=== PATIENT | female | born 1950 | race Caucasian/White ===

== ENCOUNTER 2017-05-14 02:12 | Inpatient (IN) | payer MEDICARE ==
[~2017-05-14] VITALS: Ht 167.6 cm; Wt 61.2 kg
[2017-05-14] MEDS ORDERED: SODIUM CHLORIDE 0.9% 1000ML 1,000 ML IV ONE ×3 (02:40→09:14)
[2017-05-14] MEDS ORDERED: ONDANSETRON HCL 4 MG/2 ML VIAL ONE (02:40)
[2017-05-14] MEDS ORDERED: KETOROLAC TROMETHAMINE 30MG/ML ONE (02:41)
[2017-05-14 03:08] LABS: BASOPHILS % (AUTO) 0.2 % (0.0-5.0); EOSINOPHILS % (AUTO) 0.2 % (0.0-8.0); LYMPHOCYTES % (AUTO) 7.9 % (21.0-51.0); MEAN CORPUSCULAR HEMOGLOBIN 29.8 pg (27.0-33.0); MEAN CORPUSCULAR HGB CONC 33.3 g/dL (32.0-36.0); MEAN CORPUSCULAR VOLUME 89.4 fL (79-99); MONOCYTES % (AUTO) 6.2 % (3.0-13.0); NEUTROPHILS % (AUTO) 85.5 % (40.0-77.0); PLATELET COUNT (AUTO) 274 K/uL (130-400); RED BLOOD CELL COUNT(AUTO) 4.81 MIL/uL (4.00-5.50); RED CELL DISTRIBUTION WIDTH 14.3 % (11.0-15.5); WHITE BLOOD COUNT (AUTO) 13.3 K/uL (4.8-10.8)
[2017-05-14 03:11] LABS: CREATININE 0.7 mg/dL (0.5-1.5); POTASSIUM 3.9 mmol/L (3.5-5.1)
[2017-05-14 03:15] LABS: ALBUMIN 3.5 g/dL (3.5-5.0); BILIRUBIN,DIRECT 0.1 mg/dL (0.0-0.3); BILIRUBIN,TOTAL 0.4 mg/dL (0.2-1.0); TOTAL PROTEIN, SERUM 6.8 g/dL (6.0-8.3)
[2017-05-14 03:20] LABS: INR 0.97 (0.85-1.15); PARTIAL THROMBOPLASTIN TIME 25.6 SEC (26.3-35.5); PROTHROMBIN TIME 10.2 SEC (9.6-11.6)
[2017-05-14 03:24] LABS: APPEARANCE,URINE Clear (CLEAR); BILIRUBIN,URINE Negative (NEGATIVE); COLOR,URINE Yellow (YELLOW); GLUCOSE, URINE (UA) Negative (NEGATIVE); KETONES,URINE 15 mg/dL (NEGATIVE); LEUKOCYTE ESTERASE ,URINE Negative (NEGATIVE); NITRATE,URINE Negative (NEGATIVE); OCCULT BLOOD,URINE Nonhemolyzed Trace (NEGATIVE); PROTEIN,URINE Negative (NEGATIVE)
[2017-05-14 03:31] LABS: BACTERIA,URINE None Seen /HPF (None Seen); RBC,URINE 0-1 /HPF (0-1); SQUAMOUS EPITHELIAL CELL,UR Moderate /LPF (0-2); WBC,URINE 0-1 /HPF (0-1)
[2017-05-14] MEDS ORDERED: MEROPENEM 1 GM VIAL ONE (04:07)
[2017-05-14] MEDS ORDERED: VANCOMYCIN 1GM+NS 250ML 250 ML IV ONE (04:08)
[2017-05-14] MEDS: SODIUM CHLORIDE 0.9% 1000ML 1,000 ML IV SCH ×4 (06:15→20:45)
[2017-05-14] MEDS: MEROPENEM 500 MG VIAL IVP SCH ×3 (07:00→21:57)
[2017-05-14] MEDS: METRONIDAZOLE 500MG/100ML BAG 100 ML IV SCH ×3 (07:00→22:01)
[2017-05-14] MEDS ORDERED: ONDANSETRON HCL 4 MG/2 ML VIAL IV PRN (07:00)
[2017-05-14] MEDS ORDERED: POTASSIUM CHLORIDE 20 MEQ ERTAB PO PRN (07:00)
[2017-05-14] MEDS ORDERED: MORPHINE SULFATE 2 MG/ML 1ML SYG IV PRN (07:00)
[2017-05-14] MEDS ORDERED: HYDRALAZINE HCL 20 MG/ML VIAL IV PRN (07:00)
[2017-05-14] MEDS ORDERED: POTASSIUM CHLORIDE 10% ELIXIR 20 MEQ/15 ML UDCUP PO PRN (07:00)
[2017-05-14] MEDS ORDERED: MEROPENEM 500MG+NS 50ML 50 ML IV SCH (07:00)
[2017-05-14] MEDS ORDERED: ACETAMINOPHEN 650 MG SUPPOSITORY RC ONE (07:31)
[2017-05-14] MEDS: PANTOPRAZOLE SODIUM 40 MG TABLET.DR PO SCH (09:00)
[2017-05-14] MEDS ORDERED: METRONIDAZOLE 500MG/100ML BAG 100 ML ONE (09:14)
[2017-05-14] MEDS ORDERED: MEROPENEM 500 MG VIAL ONE (13:03)
[2017-05-14 16:00] VITALS: BP 144/81
[2017-05-14] MEDS ORDERED: ERGO400C PO (17:48)
[2017-05-14] MEDS ORDERED: MVIT PO (17:48)
[2017-05-14] MEDS ORDERED: ASCO100T12 PO (17:48)
[2017-05-14 20:00] VITALS: BP 152/88
[2017-05-15] VITALS: BP 144/76
[2017-05-15] MEDS: SODIUM CHLORIDE 0.9% 1000ML 1,000 ML IV SCH ×4 (01:52→23:00)
[2017-05-15 04:00] VITALS: BP 143/77
[2017-05-15] MEDS: METRONIDAZOLE 500MG/100ML BAG 100 ML IV SCH ×3 (05:00→23:00)
[2017-05-15] MEDS: MEROPENEM 500 MG VIAL IVP SCH ×3 (05:00→22:59)
[2017-05-15 05:48] LABS: HEMATOCRIT 38.6 % (36-48); MEAN CORPUSCULAR HEMOGLOBIN 29.8 pg (27.0-33.0); MEAN CORPUSCULAR HGB CONC 33.4 g/dL (32.0-36.0); MEAN CORPUSCULAR VOLUME 89.4 fL (79-99); PLATELET COUNT (AUTO) 247 K/uL (130-400); RED BLOOD CELL COUNT(AUTO) 4.32 MIL/uL (4.00-5.50); RED CELL DISTRIBUTION WIDTH 14.4 % (11.0-15.5); WHITE BLOOD COUNT (AUTO) 13.1 K/uL (4.8-10.8)
[2017-05-15 05:54] LABS: CREATININE 0.6 mg/dL (0.5-1.5); POTASSIUM 3.3 mmol/L (3.5-5.1)
[2017-05-15] MEDS: LIDOCAINE HCL-MPF 1% 2ML VIAL IVP PRN (06:40)
[2017-05-15] MEDS: POTASSIUM CHLORIDE 20MEQ/100ML 100 ML IV PRN ×2 (06:40→14:12)
[2017-05-15] MEDS: PANTOPRAZOLE SODIUM 40 MG TABLET.DR PO SCH (07:51)
[2017-05-15 08:01] VITALS: BP 137/77
[2017-05-15] MEDS: FAMOTIDINE/PF 20 MG/2 ML VIAL IV SCH ×2 (10:52→20:39)
[2017-05-15 11:53] VITALS: BP 141/80
[2017-05-15] MEDS ORDERED: METRONIDAZOLE 500MG/100ML BAG 100 ML IVPB ONE (14:04)
[2017-05-15 16:33] VITALS: BP 149/74
[2017-05-15 20:00] VITALS: BP 156/78
[2017-05-16] VITALS (7 sets, daily range): BP systolic 136–148; BP diastolic 75–83
[2017-05-16 05:27] LABS: HEMATOCRIT 40.7 % (36-48); MEAN CORPUSCULAR HEMOGLOBIN 29.8 pg (27.0-33.0); MEAN CORPUSCULAR VOLUME 90.2 fL (79-99); PLATELET COUNT (AUTO) 273 K/uL (130-400); RED BLOOD CELL COUNT(AUTO) 4.52 MIL/uL (4.00-5.50); RED CELL DISTRIBUTION WIDTH 14.4 % (11.0-15.5); WHITE BLOOD COUNT (AUTO) 9.5 K/uL (4.8-10.8)
[2017-05-16 05:44] LABS: CREATININE 0.7 mg/dL (0.5-1.5); POTASSIUM 3.7 mmol/L (3.5-5.1)
[2017-05-16] MEDS: METRONIDAZOLE 500MG/100ML BAG 100 ML IV SCH ×3 (06:11→22:43)
[2017-05-16] MEDS: SODIUM CHLORIDE 0.9% 1000ML 1,000 ML IV SCH ×3 (06:11→19:30)
[2017-05-16] MEDS: MEROPENEM 500 MG VIAL IVP SCH ×3 (06:11→22:43)
[2017-05-16] MEDS: FAMOTIDINE/PF 20 MG/2 ML VIAL IV SCH ×2 (08:26→19:30)
[2017-05-16] MEDS ORDERED: ENOXAPARIN SODIUM 40 MG/0.4 ML SYRINGE SQ SCH (09:00)
[2017-05-16] MEDS ORDERED: WATER FOR INJECTION,STERILE 20 ML VIAL ONE (15:21)
[2017-05-16] MEDS ORDERED: DIATR MEGLU/DIATRIZOATE SODIUM 30 ML BOTTLE PO ONE (20:47)
[2017-05-17 05:10] VITALS: BP 133/81
[2017-05-17] MEDS: METRONIDAZOLE 500MG/100ML BAG 100 ML IV SCH ×3 (05:57→23:01)
[2017-05-17] MEDS: MEROPENEM 500 MG VIAL IVP SCH ×3 (05:57→23:01)
[2017-05-17 06:12] LABS: CREATININE 0.6 mg/dL (0.5-1.5); POTASSIUM 3.3 mmol/L (3.5-5.1)
[2017-05-17 08:25] VITALS: BP 158/72
[2017-05-17] MEDS: FAMOTIDINE/PF 20 MG/2 ML VIAL IV SCH ×2 (09:00→20:12)
[2017-05-17] MEDS ORDERED: DEXTROSE 5 %-0.45 % NACL 1,000 ML IV SCH (11:13)
[2017-05-17 11:40] VITALS: BP 162/78
[2017-05-17] MEDS: POTASSIUM CHLORIDE 20MEQ/100ML 100 ML IV PRN ×2 (13:08→17:24)
[2017-05-17] MEDS: LIDOCAINE HCL-MPF 1% 2ML VIAL IVP PRN ×2 (13:08→17:24)
[2017-05-17] MEDS ORDERED: WATER FOR INJECTION,STERILE 20 ML VIAL ONE (16:14)
[2017-05-17 16:24] VITALS: BP 156/74
[2017-05-17] MEDS: SODIUM CHLORIDE 0.9% 1000ML 1,000 ML IV SCH (20:13)
[2017-05-17 21:03] VITALS: BP 138/70
[2017-05-18] VITALS: BP 128/76
[2017-05-18 04:25] VITALS: BP 152/74
[2017-05-18 06:04] LABS: BASOPHILS % (AUTO) 0.4 % (0.0-5.0); EOSINOPHILS % (AUTO) 2.1 % (0.0-8.0); HEMATOCRIT 40.5 % (36-48); LYMPHOCYTES % (AUTO) 22.2 % (21.0-51.0); MEAN CORPUSCULAR HEMOGLOBIN 30.3 pg (27.0-33.0); MEAN CORPUSCULAR VOLUME 88.9 fL (79-99); MONOCYTES % (AUTO) 10.1 % (3.0-13.0); NEUTROPHILS % (AUTO) 65.2 % (40.0-77.0); PLATELET COUNT (AUTO) 331 K/uL (130-400); RED BLOOD CELL COUNT(AUTO) 4.55 MIL/uL (4.00-5.50); WHITE BLOOD COUNT (AUTO) 6.5 K/uL (4.8-10.8)
[2017-05-18 06:15] LABS: CREATININE 0.7 mg/dL (0.5-1.5); PHOSPHORUS 3.2 mg/dL (2.5-4.9); POTASSIUM 3.8 mmol/L (3.5-5.1)
[2017-05-18] MEDS: METRONIDAZOLE 500MG/100ML BAG 100 ML IV SCH ×3 (06:44→22:59)
[2017-05-18] MEDS: MEROPENEM 500 MG VIAL IVP SCH ×3 (06:44→22:59)
[2017-05-18 07:51] VITALS: BP 144/77
[2017-05-18] MEDS: FAMOTIDINE/PF 20 MG/2 ML VIAL IV SCH ×2 (10:13→20:03)
[2017-05-18] MEDS: SODIUM CHLORIDE 0.9% 1000ML 1,000 ML IV SCH (10:13)
[2017-05-18 11:05] VITALS: BP 144/74
[2017-05-18] MEDS ORDERED: ACETAMINOPHEN-CODEINE 300/30MG TAB PO PRN ×2 (12:45)
[2017-05-18] MEDS ORDERED: WATER FOR INJECTION,STERILE 20 ML VIAL ONE (14:46)
[2017-05-18 16:24] VITALS: BP 134/79
[2017-05-18 19:00] VITALS: BP 151/82
[2017-05-19 00:26] VITALS: BP 145/70
[2017-05-19 04:00] VITALS: BP 134/81
[2017-05-19] MEDS: MEROPENEM 500 MG VIAL IVP SCH (06:13)
[2017-05-19] MEDS: METRONIDAZOLE 500MG/100ML BAG 100 ML IV SCH (06:14)
[2017-05-19 07:52] VITALS: BP 138/80
[2017-05-19] MEDS: FAMOTIDINE/PF 20 MG/2 ML VIAL IV SCH (09:51)
[2017-05-19 11:46] VITALS: BP 162/78
== END 2017-05-19 16:37 | disposition home or self-care (01) | DRG 392 ==
LOC: EDH 02:12 → EDHIP 05:36 → 4BH 14:55
PROVIDERS: ADMIT Family Medicine; ATTEND Family Medicine
DX: K57.00 Diverticulitis of small intestine with perforation and abscess without bleeding (principal); K56.609 Unspecified intestinal obstruction, unspecified as to partial versus complete obstruction; E11.9 Type 2 diabetes mellitus without complications; N20.0 Calculus of kidney; D25.9 Leiomyoma of uterus, unspecified; Z53.20 Procedure and treatment not carried out because of patient's decision for unspecified reasons; Z87.442 Personal history of urinary calculi; Z90.49 Acquired absence of other specified parts of digestive tract; Z88.8 Allergy status to other drugs, medicaments and biological substances
CPT/HCPCS: 36415; 71045; 74021; 74176; 80048; 80076; 81001; 82009; 82550; 83690; 83735; 84100; 84484; 85025; 85027; 85610; 85730; 87040; 93005; A4218; J1650; J1885; J2185; J2405; J3370; J3480; J3490; J7030; Q9963

== ENCOUNTER → 2018-12-07 | Outpatient (CLI) | payer MEDICARE ==
[~2018-12-07] MED LIST: ASCO100T12 PO; ERGO400C PO; MVIT PO
== END | disposition home or self-care (01) ==
LOC: RAH 09:49
PROVIDERS: ATTEND Urology
DX: N28.1 Cyst of kidney, acquired (principal); N20.0 Calculus of kidney; N32.89 Other specified disorders of bladder
CPT/HCPCS: 76770